=== PATIENT | male | born 1935 | race Caucasian/White ===

== ENCOUNTER 2016-07-25 11:15 | Observation (INO) | payer MEDICARE, OTHER ==
--- NOTE | ~2016-07-25 | CO ---
Unit #: [id number] #: [id number] Patient: KANDICE MAN [id number] [address] [place], [place] [address] [id number] I MR#: [id number] NAME: KANDICE MAN. ROOM: [facility] Age: 81 Sex: M Admission Date: 07/25/2016 : 1935 Attending Physician: Isabelle Sam M.D. Primary Care Physician: Mirza Coleman D.O. Consultation Date: 07/25/2016 CONSULTATION REPORT HISTORY OF PRESENT ILLNESS Mr. López is an 81-year-old white male, who presented with left upper extremity weakness. He was felt possibly to have a stroke. He underwent head CT, which showed nothing acute. CT angiogram of the head and neck showed no significant stenosis, but did reveal a 1.8 x 2.6 cm left upper lobe mass. We were called to see the patient. He has a long history of tobacco abuse and continues to smoke a pack a day. He says he just burnt it and only inhaled secondhand smoke. He does admit to some dyspnea on exertion, but is able to walk up a flight of steps. He is maintained on Symbicort and albuterol. He wears oxygen nocturnally. He rarely has a cough. He denies any hemoptysis. No recent weight loss. PAST MEDICAL HISTORY Significant for COPD. He apparently was admitted in 2016 for syncope and left against medical advice. ALLERGIES He has allergies to penicillin. HOME MEDICATIONS Albuterol, Advair, and nocturnal oxygen. FAMILY HISTORY Noted for congestive heart failure. SOCIAL HISTORY The patient lives alone. Smokes a pack a day. Drinks 3 to 4 shots daily. PAST SURGICAL HISTORY Cataract surgery and tonsillectomy. REVIEW OF SYSTEMS 10-point systems negative except for mentioned in HPI. PHYSICAL EXAMINATION GENERAL: White male, in no distress. VITAL SIGNS: Blood pressure is 159/69, pulse 86, respiratory rate 18, and afebrile. HEENT: Normocephalic, atraumatic. Pupils are equal, round, and reactive. Sclerae nonicteric. Nasal passages patent. Posterior pharynx clear. Mucous membranes moist. NECK: Supple. Trachea midline. No cervical or supraclavicular lymphadenopathy. No bruits. LUNGS: Reveal diminished breath sounds. Inspiratory and expiratory Unit #: [id number] #: [id number] Patient: KANDICE MAN wheeze. Poor air flow. CARDIAC: Heart sounds distant. Regular rate and rhythm. Could not appreciate murmur, rub, or gallop. ABDOMEN: Nontender. Bowel sounds present. No hepatosplenomegaly. EXTREMITIES: Without clubbing, cyanosis, or edema. NEUROLOGIC: Awake, alert, and oriented x3. Somewhat anxious and agitated. Awake and oriented x3. Follows commands. Left upper extremity weaker, hard to do a left rncldi-bm-zujl. DIAGNOSTIC STUDIES CARDIOVASCULAR STUDIES: EKG shows sinus rhythm, nonspecific ST-T wave changes. LABORATORY RESULTS: Chemistries reviewed, sodium 131. Cardiac enzymes negative. Alcohol less than 5. Coags normal. White count 8100, hematocrit is 44, platelet count normal. IMAGING STUDIES: Chest x-ray, no acute infiltrate. CT head and neck angiogram reviewed as noted. IMPRESSION 1. 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 2. Chronic obstructive pulmonary disease with bronchospasm. 3. Left upper extremity weakness, questionable cerebrovascular accident. 4. Tobacco use. 5. Alcohol use. PLAN Inhaled bronchodilators and burst steroids. We will place on nicotine patch. We will obtain dedicated chest CT scan. We will need tissue diagnosis either by fine needle aspirate or bronchoscopy. This can be done as an outpatient once his COPD exacerbation has improved. Make further recommendations pending. ADDENDUM I have also counseled in smoking cessation. Dictated by... Murtaza Lock M.D. LORNA/maral TD: 07/26/2016 22:16 JOB #: [id number] CONSULTATION REPORT X Murtaza Lock MD X CONSULTATION REPORT
--- NOTE | ~2016-07-25 | CR72 ---
[facility] A Service of [facility] & [facility] RADIOLOGY TEXT RESULTS PATIENT: KANDICE MAN LOCATION: [facility] [id number] : 35 UNIT #: [id number] AGE: [address]: Xiomara Nguyen MD SEX: M ORDER DR: [id number] [facility] [address] [facility]. [place], [place] [address] [id number] I MR#: [id number] Acc #: [id number] NAME: KANDICE MAN : 1935 SEX: M STUDY DATE/TIME: 07/25/2016 12:20 UNIT: [facility] ROOM: [id number] STUDY DESCRIPTION: CR Chest Single View Portable Attending Physician: Xiomara Nguyen M.D. Ordering Physician: Feliberto Oliver M.D. Primary Care Physician: Mirza Coleman D.O. MEDICAL IMAGING REPORT This report is preliminary unless electronic signature is present EXAM Portable chest radiograph 07/25/2016 HISTORY Lung mass on the CT of the neck. FINDINGS Heart size is within normal limits. Patient does have a known left lung mass. This is not well seen on the current study. There is some bibasilar atelectasis. No pneumothorax or pleural effusion is seen. There is thoracolumbar scoliosis with convexity to the right. Dictated by... Luiza Sandoval M.D. THIS IS AN ELECTRONICALLY VERIFIED REPORT Luiza Sandoval M.D. at 07/25/2016 5:25 PM AFF/feroz TD: 07/25/2016 15:44 JOB #: [id number] MEDICAL IMAGING REPORT COPY
--- NOTE | ~2016-07-25 | CT57 ---
[facility] A Service of [facility] & [facility] RADIOLOGY TEXT RESULTS PATIENT: KANDICE MAN LOCATION: [facility] 313- : 35 UNIT #: [id number] AGE: [address]: Isabelle Sam MD SEX: M ORDER DR: [id number] [address] [id number] [facility]. [place], [place] [address] [id number] I MR#: [id number] Acc #: [id number] NAME: KANDICE MAN : 1935 SEX: M STUDY DATE/TIME: 07/26/2016 11:37 UNIT: A U ROOM: [facility] STUDY DESCRIPTION: CT Chest Wo Cont Attending Physician: Isabelle Sam M.D. Ordering Physician: Murtaza Lock M.D. Primary Care Physician: Mirza Coleman D.O. MEDICAL IMAGING REPORT This report is preliminary unless electronic signature is present EXAM CT chest without contrast INDICATION COPD exacerbation, patient had a CTA of the head and neck on July 25, 2016 which showed a mass within the left upper lobe. TECHNIQUE Axial CT images were obtained from the thoracic inlet through the dome of the diaphragm. No intravenous contrast material was administered. This CT exam was performed with one or more of the following radiation dose reduction techniques: automatic control, adjustment of mA and/or kV according to patient size, and iterative reconstruction. FINDINGS Patient has 2.1 x 1.4 cm left upper lobe pulmonary nodule and this immediately abuts the patient's left innominate vein and left subclavian artery. The thyroid gland appears unremarkable, patient does appear to have some debris within the trachea. Mediastinal lymph nodes do not appear pathologically enlarged. There are coronary artery calcifications. There is borderline aneurysmal dilatation of the ascending thoracic aorta which measures up to 3.9 cm, there is aneurysmal dilatation of the descending thoracic aorta which measures about 3.2 cm proximally although it does taper to normal caliber. Focal outpouching is noted arising from the lateral/inferior aspect of the aortic arch which may reflect either small pseudoaneurysm or penetrating ulcer. Vascular surgery consultation is recommended. Patient has some dystrophic calcifications seen within the mitral valve annulus. Images through the upper abdomen demonstrate a somewhat bulky appearance to the adrenal glands bilaterally which may reflect the presence of some adenomas. I do not see any acute abnormalities within the upper abdomen. Review of bony windows demonstrates compression deformity at T11 age indeterminate but favored to be chronic. [facility]. [facility] A Service of [facility] & [facility] RADIOLOGY TEXT RESULTS PATIENT: KANDICE MAN LOCATION: [facility] [id number] : 35 UNIT #: [id number] AGE: [address]: Isabelle Sam MD SEX: M ORDER DR: Background emphysematous changes are noted. IMPRESSION 1. As was discussed on prior CT angiogram of the head and neck, patient does have a nodule within the left upper lobe measuring up to 2.1 x 1.4 cm and immediately abuts the patient's left subclavian artery and left innominate vein. Given background emphysematous changes and irregular morphology, this is favored to be malignant, most likely primary bronchogenic. 2. Patient is noted to have some debris within the trachea. This was not seen on yesterday's CT angiogram and likely reflects some secretions within the trachea. 3. This patient has a focal outpouching arising from the lateral aspect of the aortic arch upon recent CT angiogram. This did show contrast opacification and is felt to represent either pseudoaneurysm or a penetrating ulcer. Vascular surgery consultation is recommended. 4. Compression deformity noted at T11 age indeterminate although favored to be chronic if there is any doubt as to the acuity of the finding it can be better assessed with MRI or bone scan. Dictated by... Luiza Sandoval M.D. THIS IS AN ELECTRONICALLY VERIFIED REPORT Luiza Sandoval M.D. at 07/27/2016 1:29 PM AFF/rnr TD: 07/27/2016 02:07 JOB #: [id number] MEDICAL IMAGING REPORT COPY
--- NOTE | ~2016-07-25 | EKG ---
PATIENT: KANDICE MAN UNIT #: [id number] Ventricular Rate: 96 BPM Atrial Rate: 96 BPM P-R Interval: 152 ms QRS Duration: 80 ms Q-T Interval: 354 ms QTC Calculation(Bezet): 447 ms P [place]: 60 degrees Calculated R [place]: 49 degrees Calculated T [place]: 76 degrees Diagnosis Line: Normal sinus rhythm Diagnosis Line: Nonspecific T wave abnormality Diagnosis Line: Borderline ECG Diagnosis Line: When compared with ECG of 03-SEP-2015 12:54, Diagnosis Line: Nonspecific T wave abnormality, worse in Lateral Diagnosis Line: leads Diagnosis Line: Confirmed by CAIO DENG MD ([id number]) on 07/25/2016 Diagnosis Line: 4:47:14 PM INTERPRETING MD: SOWMYA GILES
--- NOTE | ~2016-07-25 | A ---
[facility] Nutrition Therapy DATE: 07/26/16 Patient: KANDICE MAN Physician: ERNA Address: [address] [place], [place] [address]MIKAELA DYSON Room/Bed: [address] [place] [address], Zip: [place] [address] Admit Date: 07/25/16 Date of : 35 Height: 5 9 Weight: 154 70 NUTRITIONAL ASSESSMENT: REASON: Nutrition consult Admitting Dx: 81 y/o male admitted with left arm weakness PMH: Likely COPD, known left lung mass, 1 ppd smoker, ETOH abuse (drinks 3-4 shots daily) Anthropometrics: Ht: 69", Wt: 70 kg (154 lbs), BMI: 22 Labs: Glucose 174, POC 163, A1C 5.6 (WNL), lipid panel WNL Meds: Xanax, Thiamine, Folic acid, MVI, Solu-medrol, Novolog (per accucheks) I/O & Bowel function: LBM 3/2, WDL Skin Integrity: Bruise/scar noted, scattered moles/freckles, no edema Estimated Nutrition Needs: N/A Assessment: Chart reviewed, events noted. RD consulted likely due to suspected stroke, CT head negative. Patient is on room air, see admitting dx and PMH as stated above. He smokes 1 ppd and drinks 3-4 shots of liquor daily. Past weights are 170-172 lbs in August of last year, current weight is 154 lbs. Some weight loss suspected, hard to tell by looking at patient is his current weight is accurate, he sort of appears to be heavier than 154 lbs. Currently on healthy heart diet, 0 points scored on malnutrition risk screen. Patient ate 100% of breakfast this AM, RD wrote in chart to change diet to regular. See recs below, will follow. Dx: Suspected weight loss r/t clinical condition AEB past weights 170-172 lbs 10 months ago. Intervention: Regular diet Monitoring, Evaluation and Goals: 1. PO intake > 50-75% of meals. 2. Prevent unintentional weight loss. 3. Glucose will usually fall WNL. Monitor: Per protocol, criteria to determine if above goals met Recommendations: [facility] Nutrition Therapy DATE: 07/26/16 Patient: KANDICE MAN Physician: ERNA Address: [address] [place] [address] KARIS Room/Bed: [address] [place] [address], Zip: [place] [address] Admit Date: 07/25/16 Date of : 35 Height: 5 9 Weight: 154 70 1. Please change diet to regular, encourage adequate oral intake. CT of head negative for stroke, lipid panel and A1C normal. 2. Please weigh q 3 days for monitoring purposes. 3. Continue SSI per accucheks and vitamins. RD will follow hospital course Mild nutrition risk Respectfully, Tequila Roberts RD, LD [employer] [facility] cc: client file
--- NOTE | ~2016-07-25 | CT18 ---
[facility] A Service of [facility] & [facility] RADIOLOGY TEXT RESULTS PATIENT: KANDICE MAN LOCATION: [facility] [id number] : 35 UNIT #: [id number] AGE: [address]: Xiomara Nguyen MD SEX: M ORDER DR: [id number] [facility] [address] [facility]. [place], [place] [address] [id number] I MR#: [id number] Acc #: [id number] NAME: KANDICE MAN : 1935 SEX: M STUDY DATE/TIME: 07/25/2016 10:38 UNIT: [facility] ROOM: 54996 STUDY DESCRIPTION: CT Angio Head Stroke Attending Physician: Xiomara Nguyen M.D. Ordering Physician: Feliberto Oliver M.D. Primary Care Physician: Mirza Coleman D.O. MEDICAL IMAGING REPORT This report is preliminary unless electronic signature is present EXAM CT scan of the head and neck with contrast with carotid CT angiography 07/25/2016 HISTORY Left-sided arm pain, numbness and weakness onset today with arm pain over the past 4 days. TECHNIQUE Thin section axial imaging was obtained from the mid mediastinum to the top of the head with contrast. 100 mL of Isovue was used. CT angiography was performed with thick sliding MIPs, curved planar reformats and 3-D volumetric imaging with surface shaded and volume shaded display. This CT exam was performed with one or more of the following radiation dose reduction techniques: automatic exposure control, adjustment of mA and/or kV according to patient size, and iterative reconstruction. FINDINGS Extravascular structures are remarkable for emphysema. There is a noncalcified spiculated left upper lobe mass abutting the mediastinum at the level of the proximal left subclavian artery. This is strongly suspicious for malignancy. It measures 18 x [address] scanning for further evaluation if no previous imaging studies are available. Septal deviation to the right is noted. Extravascular structures are otherwise unremarkable. The CT angiographic images show mild plaque at the great vessel origins. There is soft plaque seen in the left subclavian artery opposite the vertebral artery origin. It only narrows the lumen approximately 30%. Both vertebral arteries in the neck are widely patent and approximately the same size and are codominant distally. [facility] A Service of [facility] & [facility] RADIOLOGY TEXT RESULTS PATIENT: KANDICE MAN LOCATION: [facility] [address]-71 : 35 UNIT #: [id number] AGE: [address]: Xiomara Nguyen MD SEX: M ORDER DR: In the carotid circulation there is plaque at both carotid bifurcations. There is no significant stenosis by NASCET criteria on either side. Distally the internal carotids are patent up through the siphons with only mild nonocclusive siphon plaque seen on both sides. In the intracranial circulation there is moderate diffuse small vessel atherosclerotic disease. There is no evidence of aneurysm, vascular malformation or major branch vessel occlusion. IMPRESSION 1. Mild atherosclerotic disease without significant stenosis. No major branch vessel occlusion in the head. 2. Emphysema with a strongly suspicious 18 x 26 mm left upper lobe mass. This should be considered malignant till proven otherwise. This could be further evaluated with PET CT scanning as to its malignant potential. 3. Moderate small vessel disease intracranially. Dictated by... Mirza Malhotra M.D. THIS IS AN ELECTRONICALLY VERIFIED REPORT Mirza Malhotra M.D. at 07/25/2016 3:27 PM Harsh TD: 07/25/2016 15:04 JOB #: [id number] MEDICAL IMAGING REPORT COPY
--- NOTE | ~2016-07-25 | CT24 ---
[facility] A Service of [facility] & [facility] RADIOLOGY TEXT RESULTS PATIENT: KANDICE MAN LOCATION: [facility] [id number] : 35 UNIT #: [id number] AGE: [address]: Xiomara Nguyen MD SEX: M ORDER DR: [id number] [address] [address] [id number] I MR#: [id number] Acc #: [id number] NAME: KANDICE MAN : 1935 SEX: M STUDY DATE/TIME: 07/25/2016 10:44 UNIT: [facility] ROOM: [address] STUDY DESCRIPTION: CT Angio Neck Stroke Attending Physician: Xiomara Nguyen M.D. Ordering Physician: Feliberto Oliver M.D. Primary Care Physician: Mirza Coleman D.O. MEDICAL IMAGING REPORT This report is preliminary unless electronic signature is present EXAM CT angiogram of the neck 07/25/2016 Result text under order number ending [id number] CTA head and neck 07/25/2016. Please see this order for result text. Dictated by... Mirza Malhotra M.D. THIS IS AN ELECTRONICALLY VERIFIED REPORT Mirza Malhotra M.D. at 07/25/2016 3:27 PM Harsh TD: 07/25/2016 15:10 JOB #: [id number] MEDICAL IMAGING REPORT COPY
--- NOTE | ~2016-07-25 | CT72 ---
[facility] A Service of [facility] & [facility] RADIOLOGY TEXT RESULTS PATIENT: KANDICE MAN LOCATION: [facility] [id number] : 35 UNIT #: [id number] AGE: [address]: Xiomara Nguyen MD SEX: M ORDER DR: [id number] [address] [address] [facility]. [place], [place] [address] [id number] I MR#: [id number] Acc #: [id number] NAME: KANDICE MAN. : 1935 SEX: M STUDY DATE/TIME: 07/25/2016 10:33 UNIT: [facility] ROOM: [address] STUDY DESCRIPTION: CT Head Wo Contrast Stroke Attending Physician: Xiomara Nguyen M.D. Ordering Physician: Feliberto Oliver M.D. Primary Care Physician: Mirza Coleman D.O. MEDICAL IMAGING REPORT This report is preliminary unless electronic signature is present EXAM CT of the head without contrast INDICATION Left-sided arm pain and numbness and weakness starting today. TECHNIQUE Axial CT images were obtained from the vertex of the skull through the skull base. No intravenous contrast was administered. This CT exam was performed with one or more of the following radiation dose reduction techniques: automatic exposure control, adjustment of mA and/or kV according to patient size, and iterative reconstruction. FINDINGS No acute intracranial hemorrhage is identified. There is some mild atrophy in keeping with the patient's age of 82 and an old lacunar infarct in the left basal ganglia. There is no midline shift or mass effect. There is some mild microangiopathic disease but no new focal areas of decreased attenuation are identified. There is some mild mucosal thickening identified within the right maxillary sinus. The remainder of the visualized paranasal sinuses and mastoid air cells appear clear. There are no focal soft tissue abnormalities. IMPRESSION 1. No acute intracranial process is identified. Specifically, there is no evidence of acute hemorrhage, mass lesion, or acute infarct. 2. Mild sinus inflammatory changes within the right maxillary sinus. 3. 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 4. Old lacunar infarct involving the anterior limb of the left internal capsule. Dictated by... [facility] A Service of [facility] & [facility] RADIOLOGY TEXT RESULTS PATIENT: KANDICE MAN [facility] [id number] : [birth year] UNIT #: [id number] AGE: [address]: Xiomara Nguyen MD SEX: M ORDER DR: Luiza Sandoval M.D. THIS IS AN ELECTRONICALLY VERIFIED REPORT Luiza Sandoval M.D. at 07/25/2016 5:24 PM AFF/aa TD: 07/25/2016 14:13 JOB #: [id number] MEDICAL IMAGING REPORT COPY
--- NOTE | ~2016-07-25 | CO ---
Unit #: [id number] #: [id number] Patient: KANDICE MAN [id number] [facility] [address]. [place], [place] [address] [id number] MR#: [id number] NAME: KANDICE MAN ROOM: 313 Age: 81 Sex: M Admission Date: 07/25/2016 : 1935 Attending Physician: Isabelle Sam M.D. Primary Care Physician: Mirza Coleman D.O. Consultation Date: 07/25/2016 CONSULTATION REPORT PRIMARY CARE PHYSICIAN Dr. Mirza Coleman. CONSULTING PHYSICIANS Dr. Feliberto Tucker and Dr. Xiomara Nguyen, as a part of code stroke protocol. PATIENT IDENTIFICATION This is an 81-year-old, right-handed male, evaluated in room T2 at [facility]. SOURCE OF INFORMATION Obtained from the patient's son and the patient, as well as the medical record. HISTORY OF PRESENT ILLNESS This is an 81-year-old, right-handed male with a past medical history of likely COPD, ongoing tobacco use, alcohol use, and an old CVA on CT scan, who presented to [facility] with complaints of trouble using his left arm associated with some pain. He was apparently in his usual state of health until the day prior to admission when he was having pain and weakness involving his left arm. He called his son, who actually called EMS, who came last night to his house. He had an EKG. He apparently did not go to the hospital. He does have a history of not wanting to go to the hospital and has left AMA twice from this facility in the past. He apparently woke up this morning, and he was still having trouble using his arm. He was dropping his coffee cup. Yesterday, he states he did not seem to have any difficulty with driving and he has a stick shift so he requires both arms and hands to be used to drive. He does complain of associated aching pain in shoulder and he has limited range of motion. He is unable to lift his arm above his head. He denies any other exacerbating or alleviating factors. He denies any associated numbness. He denies any difficulty with his leg. He denies any double vision, blurred vision, or loss of vision, headache, or neck pain, any recent illness or injury to his arm or otherwise he denies any falls. He was brought to the ER, where a code stroke was called, because apparently he was reported as having new onset of symptoms this morning around 6:00 a.m.; however, it was determined that he was last well possibly yesterday rather than today. He was seen by Dr. Irizarry at the time of code stroke via robot. He was outside the window for alteplase; however, Dr. Irizarry ordered a CT angiogram to make sure he had no treatable occlusion or thrombus that was unremarkable for any significant or emergent issues. He was admitted to [facility] for further evaluation. Neurology was asked to evaluate. Upon Unit #: [id number] #: [id number] Patient: KANDICE MAN evaluation, I have noted that the patient is hostile. He is angry, anxious, and poorly cooperative. His son is with him and asking him to be more cooperative. Also, noted head CT was done and it was negative for any acute intracranial findings. It does show an old left basal ganglia infarct. PAST MEDICAL HISTORY 1. Admission to [facility] on 08/30/2015 for syncope. He left at that time against medical advice. 2. Likely COPD. 3. Ongoing tobacco use. 4. Cataract surgery. 5. Tonsillectomy. 6. Hospital visit on 08/30/2015 at [facility]. He was recommended at that time for admission, but the patient refused and left against medical advice. 7. Daily alcohol use. 8. Cardiac murmur. ALLERGIES Penicillin. FAMILY HISTORY Noncontributory given his stated age of 81. SOCIAL HISTORY The patient smokes a pack of cigarettes daily. He drinks 3 to 4 shots daily. He denies illicit drug use. HOME MEDICATIONS Include albuterol, Advair, home oxygen at night. He is not on any antiplatelet or anticoagulating medication. REVIEW OF SYSTEMS 12-point review of systems was done. Pertinent positives are as discussed above, otherwise negative. PHYSICAL EXAMINATION VITAL SIGNS: Temperature 97.7, he has been afebrile; pulse 85; respirations 20; blood pressure 174/74, oxygen saturation 96% on room air. Height 5 feet 9 inches and weight 155 pounds, BMI 22. NEUROLOGIC: The patient is awake. He is alert. He is oriented. He recognizes his son at the bedside. He is not fully cooperative. He is hostile. He shows anger and frustration in being here and not being allowed to get up and pace the ER. He wants to put his clothes back on. He does not want to do any testing at the moment and he is again hostile and poorly cooperative. His speech is clear; however, he follows simple commands. He does not appear to be aphasic or apraxic. Cranial nerve exam, he demonstrates full lui of vision on exam. Eyes are conjugate. No ptosis or nystagmus. Extraocular movements are intact. Sensation of face and scalp appears to be intact. Strength of muscles of facial expression appear to be intact. Hearing is intact to voice. He is hard of hearing. Tongue is midline. Unable to visualize uvula and palate. Neck is supple. Motor exam, he demonstrates normal bulk and tone. 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 He has very mild left upper extremity weakness compared to the right upper extremity, but not significantly worse. His bilateral lower extremities appear to be intact. Unit #: [id number] #: [id number] Patient: KANDICE MAN Sensory exam is without extinction. Gait and Romberg deferred at this time. Reflexes appear to be 1/4. Toes are equivocal. Coordination; on left upper extremity, he has some past-pointing, and difficulty with [id number] of the left upper extremity. Of note, he also has difficulty lifting his left upper extremity above his head. He has more difficulty proximally than distally. No tremors or myoclonus seen. DIAGNOSTIC STUDIES IMAGING STUDIES: CT of the head without contrast, stroke protocol on 07/25/2016, no acute intracranial process identified. No evidence of acute hemorrhage, mass lesion, or acute infarct. Mild sinus inflammatory changes in the right maxillary sinus, old lacunar infarct involving the left basal ganglia, lacunar infarct involving the anterior limb of the left internal capsule. CT angiogram of the head and neck on 07/25/2016 per stroke protocol, mild atherosclerotic disease without significant stenosis. No major branch vessel occlusion of the head. Emphysema was strongly suspicious 18 x 26 mm left upper lobe mass. It should be considered malignant until proven, otherwise it could be further evaluated with PET-CT scanning as to its malignant potential per Radiology report. Moderate small vessel disease intracranially. CARDIOVASCULAR STUDIES: EKG showed normal sinus rhythm. Cardiology report pending. LABORATORY RESULTS: CBC unremarkable. PT 10.0, INR 1.0. Sodium 131, potassium 4, chloride 103, CO2 of 22, glucose 110, BUN 10, creatinine 0.9, estimated GFR above 60, calcium 8.1, glucose 118 on arrival. Urinalysis unremarkable. Blood alcohol level less than 5. Troponin 0.04. CK 1059. IMPRESSION 1. Left upper extremity ataxia and pain, mild weakness, rule out focal injury versus central etiology. 2. Old left basal ganglia, and left internal capsule infarct on CT scanning. 3. Tobacco abuse ongoing. 4. Chronic obstructive pulmonary disease. 5. Left upper lobe lung mass. PLAN The patient needs an MRI of the brain, which has been ordered. He also needs a left upper extremity x-ray, which has been ordered by the hospitalist. We will start aspirin. Check lab work. Exam was somewhat limited. The patient is poorly cooperative and hostile. He certainly not an acute intervention candidate as he was outside the window, and CT angiogram is unremarkable for any embolus or vascular cutoff. The patient is not fully cooperative with plan of care and is hostile. I would recommend the patient to stay and continue treatment and workup given his imaging and differential diagnoses. We will follow along with you. The patient was seen by Dr. Irizarry at the time of my evaluation. He agrees to the above. Please call for any questions or issues. We thank you very much for allowing us to assist in the care of this patient. Dictated by... Christie Justice A.P.R.N. for Ranjith Irizarry M.D. Unit #: [id number] #: [id number] Patient: KANDICE MAN ROHINI/maral TD: 07/26/2016 12:52 JOB #: [id number] CONSULTATION REPORT X Christie Justice [employer] MATE X CONSULTATION REPORT
--- NOTE | ~2016-07-25 | HP ---
Unit #: [id number] #: [id number] Patient: KANDICE MAN [id number] [facility] [address] [facility]. [place], [place] [address] [id number] MR#: [id number] NAME: KANDICE MAN ROOM: Age: 81 Sex: M Admission Date: 07/25/2016 : 1935 Attending Physician: Feliberto Oliver M.D. Primary Care Physician: Mirza Coleman D.O. HISTORY AND PHYSICAL CHIEF COMPLAINT Left arm weakness. HISTORY OF PRESENT ILLNESS The patient is an 81-year-old male with a past medical history of likely COPD, tobacco abuse, alcohol abuse, who presented to the emergency department for evaluation of the above. The patient states that he was in his usual state of health until the day prior to admission when he was having pain and weakness involving his left arm. This morning, the symptoms persisted. He was unable to hold his coffee cup and unable to touch his nose with his left hand. He apparently saw his primary care physician and was sent to the emergency department for further evaluation. In the emergency department, a code stroke was called. He was not thought to be a candidate for any type of intervention. CT of the head was done and showed nothing acute. CT angiogram of the head and neck showed no significant stenosis. He is being admitted to [facility] for evaluation and further treatment. PAST MEDICAL HISTORY 1. Admission to [facility] August 30, 2015, for syncope. He left against medical advice. 2. Likely chronic obstructive pulmonary disease. PAST SURGICAL HISTORY 1. Cataract surgery. 2. Tonsillectomy. SOCIAL HISTORY The patient lives alone. He smokes a pack of cigarettes daily. He drinks three to four shots daily. FAMILY HISTORY Notable for congestive heart failure. ALLERGIES Penicillin. HOME MEDICATIONS Include: 1. Albuterol. 2. Advair. Unit #: [id number] #: [id number] Patient: KANDICE MAN 3. He is also on oxygen at night. REVIEW OF SYSTEMS A complete review of systems is negative except as indicated in HPI. The patient denies any trauma to the left upper extremity. He denies any change in his weight. No night sweats. He does have a cough at baseline. He denies any chest pain. DIAGNOSTIC STUDIES CARDIOVASCULAR: EKG shows normal sinus rhythm with a rate of 96 beats per minute. IMAGING: CT of the head shows nothing acute. CT angiogram of the head and neck shows no significant stenosis. There is a mass in the left upper lobe suspicious for malignancy. A chest x-ray is pending at the time of this dictation. LABORATORY: CBC essentially normal. INR is 1. Basic metabolic panel notable for sodium of 131, calcium is 8.1. Urinalysis essentially normal. Blood alcohol level less than 5. PHYSICAL EXAMINATION VITAL SIGNS: Temperature is 98.7, pulse 105, respirations 18, blood pressure 176/85. Oxygen saturation is 94% on room air. GENERAL: The patient is a male who is awake and alert, in no acute distress. HEENT: The head is atraumatic. Mucous membranes are moist. NECK: Supple. Trachea is midline. CARDIOVASCULAR: Regular rate and rhythm. LUNGS: Clear to auscultation bilaterally. There are a few scattered expiratory wheezes. Breathing is not labored to conversation. ABDOMEN: Soft, nontender with bowel sounds present in all four quadrants. EXTREMITIES: Nontender with no pedal edema. NEUROLOGIC: The patient is awake and alert. He follows commands. He has difficulty with left [id number]. He is not entirely cooperative for neuro exam. PSYCH: The patient is somewhat agitated. He is intermittently cooperative. SKIN: Skin of examined areas is warm and dry. ASSESSMENT The patient is an 81-year-old male with: 1. Left upper extremity weakness. 2. Left lung mass. 3. Chronic obstructive pulmonary disease with continued tobacco abuse. 4. Alcohol abuse with last drink being on the day prior to admission. PLAN 1. Admit to intermediate level for observation. 2. Healthy heart diet if passes bedside swallow. Unit #: [id number] #: [id number] Patient: KANDICE MAN 3. MRI of the brain without contrast for further evaluation of left upper extremity weakness. 4. Neuro checks. 5. Stroke protocol per neurology. 6. Consult Dr. Irizarry regarding left upper extremity weakness. 7. Left shoulder x-ray. 8. Consult Dr. Hyde regarding lung mass. 9. Supplement oxygen 2 to 4 L to maintain saturations greater than 92%. 10. Duo-Nebs q.4 hours p.r.n. 11. Serial cardiac enzymes. 12. Aspirin 325 mg p.o. x1 now if not already given. 13. Check LFTs. 14. Alcohol withdrawal protocol. 15. SCDs for DVT prophylaxis. 16. Repeat labs in the morning. 17. Additional workup and consultants based on above. Dictated by Xiomara Nguyen M.D. FAITH/germain TD: 07/25/2016 13:14 JOB #: [id number] HISTORY AND PHYSICAL X Xiomara Nguyen MD X HISTORY AND PHYSICAL
--- NOTE | ~2016-07-25 | CR229 ---
[facility] A Service of [facility] RADIOLOGY TEXT RESULTS PATIENT: KANDICE MAN LOCATION: [facility] 313- : 35 UNIT #: [id number] AGE: [address]: Isabelle Sam MD SEX: M ORDER DR: [id number] [place] [id number] [facility]. [place], [place] [address] [id number] MR#: [id number] Acc #: [id number] NAME: KANDICE MAN. : 1935 SEX: M STUDY DATE/TIME: 07/25/2016 13:56 UNIT: [address] ROOM: [facility] STUDY DESCRIPTION: CR Shoulder Min 2 View Lt Attending Physician: Xiomara Nguyen M.D. Ordering Physician: Xiomara Nguyen M.D. Primary Care Physician: Mirza Coleman D.O. MEDICAL IMAGING REPORT This report is preliminary unless electronic signature is present EXAM 2 views left shoulder HISTORY Pain for 3 days. No known injury. FINDINGS No acute fracture or subluxation of the left shoulder is identified. No aggressive osseous abnormalities are seen. There are some mild degenerative changes involving the left AC joint. Patient has calcified granuloma at the left lung apex. IMPRESSION No acute findings. Dictated by... Luiza Sandoval M.D. THIS IS AN ELECTRONICALLY VERIFIED REPORT Luiza Sandoval M.D. at 07/26/2016 12:50 PM AFF/pcl TD: 07/25/2016 18:56 JOB #: [id number] MEDICAL IMAGING REPORT COPY
[2016-07-25 10:48] LABS: BASOPHIL% 0.4 % (0-2.5); EOSINOPHIL% 0.1 % (0.0-7.0); HEMATOCRIT 44.1 % (38.0-50.0); LYMPHOCYTE# 1.1 X10e3 (1.0-3.5); MEAN CELL VOLUME 92.1 FL (83-96); MEAN CORPUSCULAR HEMOGLOBIN 31.2 PG (28-34); MEAN CORPUSCULAR HGB CONC 33.9 g/dL (30-36); MEAN PLATELET VOLUME 6.8 FL (6.5-11.5); MONOCYTE# 0.7 X10e3 (0-1.0); NEUTROPHIL# 6.2 X10e3 (1.5-7.1); NEUTROPHIL% 76.5 % (40-75); PLATELET COUNT 223 X10e3 (140-420); RED BLOOD COUNT 4.79 X10e (3.90-5.60); RED CELL DISTRIBUTION WIDTH 13.5 % (11.0-15.5); WHITE BLOOD COUNT 8.1 X10e3 (4.0-10.5)
[2016-07-25 10:49] LABS: DIFF IND NO
[2016-07-25 11:11] LABS: BLOOD UREA NITROGEN 10 mg/dL (9-23); BUN/CREATININE RATIO 11.11; CALCIUM SERUM 8.1 mg/dL (8.4-10.2); CARBON DIOXIDE 22 mmol/L (22-31); CHLORIDE 103 mmol/L (100-111); CREATININE SERUM 0.9 mg/dL (0.6-1.4); GLOM FILT RATE Estimated ABOVE60 mL/min (>60); GLUCOSE FASTING 110 mg/dL (70-110); SODIUM 131 mmol/L (135-145)
[~2016-07-25 11:15] MED LIST: NO MEDICATIONS
[2016-07-25 11:37] LABS: URINE SOURCE CLEAN CATCH
[2016-07-25 11:41] LABS: POC - CREATININE 1.18 mg/dL (0.64-1.27); POC - GFR >60.0 mL/min (>60)
[2016-07-25 11:46] LABS: URINE APPEARANCE CLEAR; URINE BILIRUBIN NEG (NEG); URINE BLOOD NEG (NEG); URINE COLOR YELLOW; URINE GLUCOSE NEG (NEG); URINE KETONE 1+ (NEG); URINE LEUKOCYTE ESTERASE NEG (NEG); URINE NITRATE NEG (NEG); URINE PH 6.5 (5-8); URINE PROTEIN NEG (NEG); URINE SPECIFIC GRAVITY 1.028 (1.003-1.035); URINE UROBILINOGEN 0.2 MG/DL (NEG)
[2016-07-25 11:53] LABS: CULTURE INDICATED? NO
[2016-07-25 15:01] LABS: %MB 0.9 % (0.0-4.0); MB 9.6 ng/ml
[2016-07-25] MEDS ORDERED: ALBUTEROL17 GM INH (17:19)
[2016-07-25] MEDS ORDERED: ADVAIR INHALER (17:20)
[2016-07-25] MEDS ORDERED: OXYGEN 2 LITERS (17:20)
[2016-07-25 20:23] LABS: %MB 0.8 % (0.0-4.0); MB 9.7 ng/ml
[2016-07-25 20:56] LABS: ALBUMIN SERUM 3.9 g/dL (3.5-5.0); BILIRUBIN, DIRECT 0.3 mg/dL (0.0-0.2); BILIRUBIN,INDIRECT 0.6 mg/dL (0.0-0.9); BILIRUBIN,TOTAL 0.9 mg/dL (0.2-2.0); PROTEIN TOTAL SERUM 6.5 g/dL (6.0-8.3)
[2016-07-26 02:25] LABS: %MB 0.7 % (0.0-4.0); MB 11.7 ng/ml
[2016-07-26 06:24] LABS: BASOPHIL% 0.1 % (0-2.5); HEMOGLOBIN 15.4 gm/dL (13.0-16.0); LYMPHOCYTE# 0.8 X10e3 (1.0-3.5); LYMPHOCYTE% 12.9 % (17.0-45.0); MEAN CELL VOLUME 93.5 FL (83-96); MEAN CORPUSCULAR HEMOGLOBIN 31.3 PG (28-34); MEAN CORPUSCULAR HGB CONC 33.5 g/dL (30-36); MEAN PLATELET VOLUME 7.4 FL (6.5-11.5); MONOCYTE# 0.2 X10e3 (0-1.0); MONOCYTE% 3.8 % (3.0-12.0); NEUTROPHIL# 4.9 X10e3 (1.5-7.1); NEUTROPHIL% 83.2 % (40-75); PLATELET COUNT 225 X10e3 (140-420); RED BLOOD COUNT 4.92 X10e (3.90-5.60); RED CELL DISTRIBUTION WIDTH 13.8 % (11.0-15.5); WHITE BLOOD COUNT 5.9 X10e3 (4.0-10.5)
[2016-07-26 06:28] LABS: DIFF IND NO
[2016-07-26 06:50] LABS: ALBUMIN SERUM 3.9 g/dL (3.5-5.0); ALKALINE PHOSPHATASE 58 U/L (32-92); ALT (SGPT) 18 U/L (10-40); AST (SGOT) 42 U/L (10-42); BILIRUBIN,TOTAL 0.5 mg/dL (0.2-2.0); BLOOD UREA NITROGEN 14 mg/dL (9-23); CALCIUM SERUM 8.9 mg/dL (8.4-10.2); CARBON DIOXIDE 26 mmol/L (22-31); CHLORIDE 100 mmol/L (100-111); GLOM FILT RATE Estimated ABOVE60 mL/min (>60); GLUCOSE FASTING 171 mg/dL (70-110); POTASSIUM 4.2 mmol/L (3.5-5.1); SODIUM 136 mmol/L (135-145)
[2016-07-26 06:55] LABS: INR 0.9; PARTIAL THROMBOPLASTIN TIME 28.3 SECONDS (23.5-31.3); PROTHROMBIN TIME (PATIENT) 9.6 SECONDS (9.6-11.5)
[2016-07-26 07:28] LABS: CHOLESTEROL 148 mg/dL (0-200); HDL CHOLESTEROL 51 mg/dL (29-75); LDL CHOLESTEROL 86 mg/dL (-130); LDL/HDL RATIO 2 RATIO (0-4); TRIGLYCERIDES 55 mg/dL (10-160)
[2016-07-27 05:10] LABS: HEMATOCRIT 44.1 % (38.0-50.0); HEMOGLOBIN 14.8 gm/dL (13.0-16.0); MEAN CELL VOLUME 93.1 FL (83-96); MEAN CORPUSCULAR HEMOGLOBIN 31.1 PG (28-34); MEAN CORPUSCULAR HGB CONC 33.5 g/dL (30-36); MEAN PLATELET VOLUME 7.5 FL (6.5-11.5); RED BLOOD COUNT 4.74 X10e (3.90-5.60); RED CELL DISTRIBUTION WIDTH 13.5 % (11.0-15.5)
[2016-07-27 05:11] LABS: WHITE BLOOD COUNT 9.5 X10e3 (4.0-10.5)
[2016-07-27 06:37] LABS: BLOOD UREA NITROGEN 23 mg/dL (9-23); BUN/CREATININE RATIO 28.75; CALCIUM SERUM 9.1 mg/dL (8.4-10.2); CARBON DIOXIDE 28 mmol/L (22-31); CHLORIDE 104 mmol/L (100-111); CREATININE SERUM 0.8 mg/dL (0.6-1.4); GLOM FILT RATE Estimated ABOVE60 mL/min (>60); GLUCOSE FASTING 149 mg/dL (70-110); POTASSIUM 4.2 mmol/L (3.5-5.1); SODIUM 139 mmol/L (135-145)
== END 2016-07-27 12:55 | disposition home or self-care (01) ==
LOC: CED 11:15 → CEDOF 13:00 → C3A PCU 18:40
PROVIDERS: Emergency Medicine; Family Medicine; Internal Medicine; Psychiatry & Neurology Neurology
DX: R53.1 Weakness (principal); R27.0 Ataxia, unspecified; R91.1 Solitary pulmonary nodule; I08.2 Rheumatic disorders of both aortic and tricuspid valves; J44.1 Chronic obstructive pulmonary disease with (acute) exacerbation; F10.10 Alcohol abuse, uncomplicated; Z88.0 Allergy status to penicillin; F17.210 Nicotine dependence, cigarettes, uncomplicated; Z86.73 Personal history of transient ischemic attack (TIA), and cerebral infarction without residual deficits; Z82.49 Family history of ischemic heart disease and other diseases of the circulatory system
CPT/HCPCS: 36415; 70450; 70496; 70498; 71010; 71250; 73030; 80048; 80053; 80061; 80076; 81003; 82550; 82553; 82565; 82947; 83036; 84443; 84484; 85025; 85027; 85610; 85730; 86140; 93005; 93306; 94640; 94664; 94760; 96374; 96376; 97110; 97165; 99291; G0378; G0480; G8987-GO; G8988-GO; J2060; J2920; Q9967